=== PATIENT | male | born 1955 | race Caucasian/White ===

== ENCOUNTER 2020-04-28 15:29 | Emergency (ER) | payer BC ==
--- OUTSIDE RECORDS SUMMARY | 2020-04-28 16:00 | XMS REPORT | Summary of Care ---
:1955 Author Organization [facility] Address [address] [place] [address] Care Team Providers Name Role Phone Azael Brito Primary Care Provider [phone] Reason for Visit Reason Comments Re-evaluation Encounter Details Date Type Department Care Team Description 02/02/2020 Office Visit [facility] Rom Lopez (Primary Dx); Dermatology, Viky Garduno MD DSAP (disseminated superficial actinic p orokeratosis); [address] [facility]; [address] [place] [address] [id number] Actinic keratosis; South, Entrance [place], [place] History of [place] [phone] Allergies Active Allergy Reactions Severity Noted Date Comments Ciprofloxacin Nausea and/or Vomiting High 07/31/2016 Metronidazole Nausea and/or Vomiting Medium 07/31/2016 Levofloxacin Nausea and/or Vomiting High 07/31/2016 documented as of this encounter (statuses as of 02/02/2020) Medications Medication Sig Dispensed Refills Start End Date Status Date NIACIN, INOSITOL Take by mouth. 0 Active NIACINATE, ORAL lisinopril-hydroc 0 Ac tive hlorothiazide 4 (PRINZIDE,ZESTORE TIC) 20-12.5 mg per tablet NAPROXEN SODIUM Take by mouth as 0 Active (ALEVE ORAL) needed. TESTOSTERONE 200 mg by 0 Active CYPIONATE IM Intramuscular route every 2 (two) weeks. simvastatin 40 mg Take 40 mg by 0 Active tabletIndications mouth at bedtime. 7 : Scrotal varices traMADOL 50 mg Take 50 mg by 0 A ctive tabletIndications mouth as needed. 6 : Scrotal varices acyclovir 200 mg Take 200 mg by 0 Active capsuleIndication mouth as needed. 6 s: Scrotal varices fluorouracil Apply to area(s) 40 g 1 Active (EFUDEX) 5 % daily. 8 creamIndications: Actinic keratosis doxycycline 100 Starting 2 days 28 capsule 0 Active mg prior to surgery, 9 capsuleIndication take 1 tablet s: Squamous cell twice a day. 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 0 creamIndications: DSAP (disseminated superficial actinic porokeratosis) fluorouracil 5 % Apply to area(s) 40 g 2 Active creamIndications: daily. 0 DSAP (disseminated superficial actinic porokeratosis) calcipotriene Apply to area(s) 120 g 1 02/02/20 Discontinued 0.005 % daily. 9 20 (Reorder) creamIndications: DSAP (disseminated superficial actinic porokeratosis) fluorouracil 5 % Apply to area(s) 40 g 2 02/01 Discontinued creamIndications: daily. 9 20 (R eorder) DSAP (disseminated superficial actinic porokeratosis) documented as of this encounter (statuses as of 02/02/2020) Active Problems Problem Noted Date Personal history of other malignant neoplasm of skin 0 01/20/2013 Actinic keratosis 01/20/2013 documented as of this encounter (statuses as of 02/02/2020) Social History Tobacco Use Types Packs/Day Years Used Date Never Smoker Smokeless Tobacco: Never Used Alcohol Use Drinks/Week oz/Week Comments Yes 0 Standard drinks or equivalent 0.0 DAILY Sex Assigned at Date Recorded Not on file documented as of this encounter Last Filed Vital Signs Not on filedocumented in this encounter Progress Notes Tan Guardado MD - 02/02/2020 2:20 PM CDT Robbie Mosher is a 64 year old male Cc: growth HPI Robbie Mosher is a 64 year old male who presents for growth on R ear. The lesion has been present for several months, persistent. Denies any associated pain, itching, or bleeding. No previous treatments tried. Histories Past Medical History: Diagnosis Date Skin cancer (+) hx of skin cancer SH: Lives in [place] [id number] Allergies Allergies Allergen Reactions Ciprofloxacin Nausea and/or Vomiting Levaquin [Levofloxacin] Nausea and/or Vomiting Flagyl [Metronidazole] Nausea and/or Vomiting Medications Current Outpatient Medications on File Prior to Visit Medication Sig Dispense Refill calcipotriene 0.005 % cream Apply to area(s) daily. 120 g 1 fluorouracil 5 % cream Apply to area(s) daily. 40 g 2 doxycycline 100 mg capsule Starting 2 days prior to surgery, take 1 tablet twice a day. 28 capsule 0 mupirocin 2 % ointment Apply directly to surgical wound with dressing changes. 22 g 0 fluorouracil (EFUDEX) 5 % cream Apply to area(s) daily. 40 g 1 acyclovir 200 mg capsule Take 200 mg by mouth as needed. 0 simvastatin 40 mg tablet Take 40 mg by mouth at bedtime. 0 traMADOL 50 mg tablet Take 50 mg by mouth as needed. 0 TESTOSTERONE CYPIONATE IM 200 mg by Intramuscular route every 2 (two) weeks. NAPROXEN SODIUM (ALEVE ORAL) Take by mouth as needed. lisinopril-hydrochlorothiazide (PRINZIDE,ZESTORETIC) 20-12.5 mg per tablet NIACIN, INOSITOL NIACINATE, ORAL Take by mouth. No current facility-administered medications on file prior to visit. Review of Systems Skin: Itching (-), Pain (-) Heme: Bleeding (-) Physical Exam There were no vitals taken for this visit. Positive (+), Negative (-) General : Awake, no acute distress, well developed, well nourished Psychiatric: Normal affect, mood, speech and thought content Neurology: Alert, oriented to person, place, and situation Pulmonary: Breathing unlabored FACE: Positive EYES: Negative NOSE: Negative EARS: Positive SCALP: Negative NECK: Negative CHEST: Negative ABDOMEN: Positive BACK: Positive RIGHT ARM: See image LEFT ARM: Positive RIGHT LEG: Positive LEFT LEG: Positive GENITALIA: Positive (-)=Negative,(+)=Positive Actinic Keratosis (A): erythematous scaling papules Rehman Hemaniogioma (CH): smooth red and purple papules Dermatitis Erythema (DE): mild to moderate erythema and scaling Dermatitis Lichenified (DL): lichenification and thickening Dermatitis Weeping (DW): weeping and excoriation Inflamed Seborrheic Keratosis (ISK): inflamed warty brown papules and plaques Millium (ML): Small white cystic papule Molluscum Contagiosum (MC): umbilicated papule Nevus Macular (NM): well circumscribed evenly pigmented macule Nevus Papular (FUELS SALES REPRESENTATIVE): well circumscribed evenly pigmented papule Psoriasis Circumscribed (PC): well circumscribed erythema and scaling Psoriasis Diffuse (PD): diffuse patches of erythema and scaling Seborrheic Keratosis (SK): verrucous brown papules and plaques Scar (SR): cicatricial change Verruca Vulgarus (W): warty hyperkeratotic papule Assessment/Plan 1) Lentigines - upper back - Etiology and treatments discussed - Benign appearing - Recommended sun protection 2) Disseminated superficial actinic porokeratosis - extremities, trunk - Patient counseled on condition - Prominent lesions frozen today, will reevaluate lesions at f/u - CRYOTHERAPY: see #4 - areas marked "A" on PE LN2's 3) Acrochordon: shaft of penis - Etiology and treatment options discussed - LN2 offered - Reassurance provided 4) Actinic keratosis/es, face, extremities - Discussed etiology (actinic damage), prognosis/premalignant potential, and treatment options. - CRYOTHERAPY: Verbal consent obtained. 15+ lesion(s) treated with liquid nitrogen. Patient informedof potential for erythema, blister formation, hyper- or hypopigmentation, and scar at site of treatment. Wound care discussed - Counseled patient about sunscreen/sun avoidance/sun protection. 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 Lopez, who agrees with the plan of care. Tan Guardado MD 2:24 PM PGY-2 [facility] Dermatology documented in this encounter Plan of Treatment Date Type Specialty Care Team Description 08/05/2020 Office Visit Dermatology Lenin Lopez MD [address] [place], [place] [address] Health Maintenance Due Date Last Done Comments HEPATITIS C (HCV) SCREEN 1955 PNEUMOCOCCAL 0-64 YEARS COMBINED SERIES (1 of 3 - 1962 PCV13) DTaP,Tdap,and Td Vaccines (1 - Tdap) 09/25/1975 COLON CANCER SCREENING ANNUAL FIT/FOBT 2006 COLON CANCER SCREENING FIT DNA EVERY 3 YEARS 2006 COLON CANCER SCREENING SIGMOIDOSCOPY EVERY 5 YEARS 2006 COLONOSCOPY 2006 Colorectal Cancer Screening 2006 Zoster Recombinant Vaccine (SHINGRIX) (1 of 2) 2006 INFLUENZA VACCINE (#1) 2020 Depression Screening 07/29/2020 07/29/2019 documented as of this encounter Results Not on filedocumented in this encounter Visit Diagnoses Diagnosis Lentigines - Primary Other dyschromia DSAP (disseminated superficial actinic p orokeratosis) Disseminated superficial actinic poroker atosis (DSAP) Acrochordon Unspecified hypertrophic and atrophic co ndition of skin Actinic keratosis History of nonmelanoma skin cancer Personal history of other malignant neop lasm of skin documented in this encounter Insurance Payer Benefit Plan Subscriber ID Effective Dates Phone Address Type / Group BCBS OF [facility] [id number] 2011-Natalee [phone] [address] PPO/POS [place] - OUT OF t 7 [id number] [place] [address] documented as of this encounter Advance Directives Type Date 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
--- OUTSIDE RECORDS SUMMARY | 2020-04-28 16:00 | XMS REPORT | Continuity of Care Document ---
:1955 Author Organization [facility] t Address [address] [place] [address] Care Team Providers Name Role Phone Laureen Lopez MD Attending Clinician Problems This patient has no known problems. Allergies, Adverse Reactions, Alerts This patient has no known allergies or adverse reactions. Medications This patient has no known medications. Procedures This patient has no known procedures. Encounters Start End Encounter Admission Attending Care Care Encounter Source Date/Time Date/Time Type Type Clinicians Facility Department ID 2020-02-02 2020-02-02 Office SRI Lopez [id number] 14:17:17 14:40:32 Visit Rom Garduno [facility] [id number] [facility] [id number] [place] [id number] [facility] Results This patient has no known results.
--- OUTSIDE RECORDS SUMMARY | 2020-04-28 16:01 | XMS REPORT | Summary of Care ---
:1955 Author Organization [facility] Address [address] [place] [address] Care Team Providers Name Role Phone Azael Brito Primary Care Provider [phone] Reason for Visit Reason Comments Re-evaluation Encounter Details Date Type Department Care Team Description 02/02/2020 Office Visit [facility] Rom Lopez (Primary Dx); Dermatology, Viky Garduno MD DSAP (disseminated superficial actinic p orokeratosis); [address] [facility]; [address] [place] [address] [id number] Actinic keratosis; South, Entrance [place], [place] History [place] [phone] Allergies Active Allergy Reactions Severity Noted [...] a day. 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 of left scientologist calcipotriene Apply to area(s) 120 g 1 [...] hx of skin cancer SH: Lives in [place] [address] Allergies Allergies Allergen Reactions Ciprofloxacin Nausea and/or [...] well circumscribed evenly pigmented macule Nevus Papular (SHOE FOLDER): well circumscribed evenly pigmented papule Psoriasis Circumscribed [...] care. 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
[2020-04-28 16:21] LABS: Absolute Lymphocytes (CBC) 1.6 K/uL (0.7-4.9); Basophils % 0.2 % (0-1.3); MPV 8.1 fL (7.6-11.3); RBC Red Blood Cell Count 5.24 M/uL (4.33-5.43)
[2020-04-28 16:27] LABS: Bilirubin Direct 0.1 mg/dL (0-0.2); Bilirubin Total 0.4 mg/dL (0.2-1.0); Potassium 3.7 mmol/L (3.5-5.1); Protein, Total 7.5 g/dL (6.4-8.2)
[2020-04-28 16:47] LABS: Urine Blood TRACE (NEG); Urine Glucose NEGATIVE (NEG); Urine Protein NEGATIVE (NEG)
--- NOTE | 2020-04-28 16:56 | RAD REPORT ---
EXAM DESCRIPTION: CT - Stone Protocol - 04/28/2020 4:11 pm CLINICAL HISTORY: Abdominal pain. Right flank pain COMPARISON: 2015 TECHNIQUE: Computed axial tomography of the abdomen pelvis was obtained without oral or IV contrast. Lack of IV and oral contrast limits evaluation of solid organs, bowel, and vessels. Coronal reformat akshat images were obtained and reviewed. All CT scans are performed using dose optimization technique as appropriate and may include automated exposure control or mA/KV adjustment according to patient size. FINDINGS: A renal calculus is not seen. An ureteral calculus is not noted. A bladder calculus is not present. The liver, spleen, pancreas and adrenals appear grossly normal Diverticula stem from the colon without evidence of diverticulitis. The appendix appears normal Small hiatal hernia. Tiny umbilical hernia. Inguinal hernia repair IMPRESSION: Negative for a genitourinary calculus
--- NOTE | 2020-04-28 17:09 | ER ---
Nurse's Notes [facility] Name: Robbie Mosher Age: 64 yrs Sex: Male : 1955 Arrival Date: 04/28/2020 Time: 15:31 Bed 19 Private MD: Diagnosis: Flank Pain Presentation: 04/28 15:46 Chief complaint: Patient states: Right flank pain since July, worse for 1 week. ll1 Denies N/V/D. No fevers, no dysuria reported. Coronavirus screen: Client denies travel out of the [place] in the last 14 days. At this time, the client does not indicate any symptoms associated with coronavirus-19. Ebola Screen: Patient denies travel to an Ebola-affected area in the 21 days before illness onset. Initial Sepsis Screen: Does the patient meet any 2 criteria? HR > 90 bpm. No. Patient's initial sepsis screen is negative. Does the patient have a suspected source of infection? Yes: Acute abdominal pain. Risk Assessment: Do you want to hurt yourself or someone else? Patient reports no desire to harm self or others. Onset of symptoms was July 02, 2019. 15:46 Method Of Arrival: Ambulatory ll1 15:46 Acuity: RENETTA 3 ll1 Historical: - Allergies: 15:48 Cipro; ll1 15:48 Levaquin; ll1 15:48 METRONIDAZOLE; ll1 16:14 Aspirin; hb - Home Meds: 16:14 Aleve Oral PRN [Active]; lisinopril Oral [Active]; simvastatin 40 mg Oral tab 1 tab hb once daily [Active]; Tramadol Oral PRN [Active]; - PMHx: 15:48 High Cholesterol; Hypertension; ll1 - PSHx: 15:48 Hernia repair; ll1 - Immunization history:: Flu vaccine is not up to date. - Social history:: Smoking status: Patient denies any tobacco usage or history of. Screenin:40 Abuse screen: Denies threats or abuse. Nutritional screening: No deficits noted. tw2 Tuberculosis screening: No symptoms or risk factors identified. Fall Risk None identified. Assessment: 15:39 Reassessment: pt states "i need to urinate at this time", specimen cup given to pt at tw2 this time. 15:49 General: Appears in no apparent distress. Behavior is calm, cooperative. Pain: Pain hb currently is 2 out of 10 on a pain scale. Neuro: Level of Consciousness is awake, alert, obeys commands, Oriented to person, place, time, situation. Cardiovascular: Patient's skin is warm and dry. Respiratory: Respiratory effort is even, unlabored, Respiratory pattern is regular, symmetrical. GI: Reports right flank pain. : Reports right flank pain. EENT: No signs and/or symptoms were reported regarding the EENT system. Derm: Skin is pink, warm \\T\\ dry. Musculoskeletal: No signs and/or symptoms reported regarding the musculoskeletal system. 17:08 Reassessment: Patient appears in no apparent distress at this time. Patient and/or hb family updated on plan of care and expected duration. Pain level reassessed. Patient is alert, oriented x 3, equal unlabored respirations, skin warm/dry/pink. Vital Signs: 15:46 BP 127 / 65; Pulse 98; Resp 18; Temp 98.5; Pulse Ox 97% on R/A; Pain 2/10; ll1 17:00 BP 132 / 68; Pulse 82; Resp 16; Pulse Ox 97% on R/A; hb ED Course: 15:31 Patient arrived in ED. mr 15:37 Katia Badillo, [facility] kb 15:37 Miranda Garay MD is Attending Physician. kb 15:43 Kayleigh Ford, RN is Primary Nurse. hb 15:43 Arm band placed on. hb 15:48 Triage completed. ll1 15:48 Patient placed in an exam room, on a stretcher. ll1 15:49 Patient has correct armband on for positive identification. Bed in low position. Call hb light in reach. Side rails up X 1. 16:04 Inserted saline lock: 20 gauge in right antecubital area, using aseptic technique. tw2 Blood collected. 16:12 CT Stone Protocol In Process Unspecified. EDMS 17:18 Removal of peripheral IV. Catheter intact, dressing applied. jp3 17:29 No provider procedures requiring assistance completed. IV discontinued, intact, hb bleeding controlled, No redness/swelling at site. Administered Medications: No medications were administered Outcome: 17:09 Discharge ordered by . kb 17:27 Patient left the ED. hb 17:29 Discharged to home ambulatory. hb 17:29 Condition: stable 17:29 Discharge instructions given to patient, Instructed on discharge instructions, follow up and referral plans. medication usage, Demonstrated understanding of instructions, follow-up care, medications, Prescriptions given X 1. Signatures: Dispatcher [employer] Katia Whitten, [employer] SALESPERSON-Sayda Chappell mr Kayleigh Ford, LULY RN hb Serina Henderson RN RN tw2 Favio David jp3 René Mason RN RN ll1
--- NOTE | 2020-04-28 17:10 | EDPHYS ---
Physician Documentation [facility] Name: Robbie Mosher Age: 64 yrs Sex: Male : 1955 Arrival Date: 04/28/2020 Time: 15:31 Bed 19 Private MD: ED Physician Miranda Garay HPI: 04/28 17:37 This 64 yrs old Male presents to ER via Ambulatory with complaints of Flank kb Pain. 17:37 The patient presents with abdominal pain right anterior lateral abd. Onset: The kb symptoms/episode began/occurred 9 month(s) ago, and became worse this month, and more painful this week. The symptoms do not radiate. Associated signs and symptoms: none. The symptoms are described as constant. Modifying factors: The symptoms are alleviated by nothing, the symptoms are aggravated by nothing. Severity of pain: At its worst the pain was moderate in the emergency department the pain is unchanged. The patient has not experienced similar symptoms in the past. The patient has not recently seen a physician. Pt reports he started having this pain to right lateral abd in July. PCP couldn't find a source so he let it go, but this month the pain has increased and this week it is even worse. . Historical: - Allergies: 15:48 Cipro; ll1 15:48 Levaquin; ll1 15:48 METRONIDAZOLE; ll1 16:14 Aspirin; hb - Home Meds: 16:14 Aleve Oral PRN [Active]; lisinopril Oral [Active]; simvastatin 40 mg Oral tab 1 tab hb once daily [Active]; Tramadol Oral PRN [Active]; - PMHx: 15:48 High Cholesterol; Hypertension; ll1 - PSHx: 15:48 Hernia repair; ll1 - Immunization history:: Flu vaccine is not up to date. - Social history:: Smoking status: Patient denies any tobacco usage or history of. ROS: 17:34 Constitutional: Negative for fever, chills, and weight loss, Cardiovascular: Negative kb for chest pain, palpitations, and edema, Respiratory: Negative for shortness of breath, cough, wheezing, and pleuritic chest pain, : Negative for injury, bleeding, discharge, and swelling, MS/Extremity: Negative for injury and deformity, Skin: Negative for injury, rash, and discoloration, Neuro: Negative for headache, weakness, numbness, tingling, and seizure. 17:34 Abdomen/GI: Positive for abdominal pain, Negative for nausea, vomiting, and diarrhea, constipation. 17:34 Back: Positive for flank pain. Exam: 17:35 Constitutional: This is a well developed, well nourished patient who is awake, alert, kb and in no acute distress. Head/Face: Normocephalic, atraumatic. Chest/axilla: Normal chest wall appearance and motion. Nontender with no deformity. No lesions are appreciated. Cardiovascular: Regular rate and rhythm with a normal S1 and S2. No gallops, murmurs, or rubs. Normal PMI, no JVD. No pulse deficits. Respiratory: Lungs have equal breath sounds bilaterally, clear to auscultation and percussion. No rales, rhonchi or wheezes noted. No increased work of breathing, no retractions or nasal flaring. Abdomen/GI: Soft, non-tender, with normal bowel sounds. No distension or tympany. No guarding or rebound. No evidence of tenderness throughout. Back: No spinal tenderness. No costovertebral tenderness. Full range of motion. Skin: Warm, dry with normal turgor. Normal color with no rashes, no lesions, and no evidence of cellulitis. MS/ Extremity: Pulses equal, no cyanosis. Neurovascular intact. Full, normal range of motion. Neuro: Awake and alert, GCS 15, oriented to person, place, time, and situation. Cranial nerves II-XII grossly intact. Motor strength 5/5 in all extremities. Sensory grossly intact. Cerebellar exam normal. Normal gait. Vital Signs: 15:46 BP 127 / 65; Pulse 98; Resp 18; Temp 98.5; Pulse Ox 97% on R/A; Pain 2/10; ll1 17:00 BP 132 / 68; Pulse 82; Resp 16; Pulse Ox 97% on R/A; hb MDM: 15:37 Patient medically screened. kb 17:08 Data reviewed: vital signs, nurses notes. Data interpreted: Pulse oximetry: on room air kb is 97 %. Interpretation: normal. 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 04/28 15:55 Order name: Basic Metabolic Panel; Complete Time: 16:29 kb 04/28 15:55 Order name: CBC with Diff; Complete Time: 16:24 kb 04/28 15:55 Order name: Hepatic Function; Complete Time: 16:29 kb 04/28 15:55 Order name: Lipase; Complete Time: 16:29 kb 04/28 15:55 Order name: CT Stone Protocol; Complete Time: 16:59 kb 04/28 16:25 Order name: Urine Dipstick--Ancillary (enter results); Complete Time: 16:48 bd 04/28 15:41 Order name: Urine Dipstick-Ancillary (obtain specimen); Complete Time: 15:49 kb 04/28 15:55 Order name: IV Saline Lock; Complete Time: 16:04 kb 04/28 15:55 Order name: Labs collected and sent; Complete Time: 16:04 kb Administered Medications: No medications were administered Disposition: 17:59 Co-signature as Attending Physician, Miranda Garay MD. ma2 Disposition: 04/28/20 17:09 Discharged to Home. Impression: Flank Pain. - Condition is Stable. - Discharge Instructions: Flank Pain, [id number]. - Prescriptions for Tramadol 50 mg Oral Tablet - take 1 tablet by ORAL route every 8 hours as needed; 12 tablet. - Medication Reconciliation Form, Thank You Letter, Antibiotic Education, Prescription Opioid Use form. - Follow up: Emergency Department; When: As needed; Reason: Worsening of condition. Follow up: Private Physician; When: 2 - 3 days; Reason: Recheck today's complaints, Continuance of care, Re-evaluation by your physician. Signatures: Dispatcher [employer] Katia Whitten FNP-C FNP-Kayleigh Ruiz RN Miranda Almendarez MD MD ma2 René Mason RN RN ll1 Corrections: (The following items were deleted from the chart) 17:27 17:09 04/28/2020 17:09 Discharged to Home. Impression: Flank Pain. Condition is Stable. hb Forms are Medication Reconciliation Form, Thank You Letter, Antibiotic Education, Prescription Opioid Use. Follow up: Emergency Department; When: As needed; Reason: Worsening of condition. Follow up: Private Physician; When: 2 - 3 days; Reason: Recheck today's complaints, Continuance of care, Re-evaluation by your physician. kb 17:36 17:34 Abdomen/GI: Positive for abdominal pain, nausea, Negative for vomiting, diarrhea, kb constipation, kb 17:36 17:35 Constitutional: This is a well developed, well nourished patient who is awake, kb alert, and in no acute distress. Head/Face: Normocephalic, atraumatic. Chest/axilla: Normal chest wall appearance and motion. Nontender with no deformity. No lesions are appreciated. Cardiovascular: Regular rate and rhythm with a normal S1 and S2. No gallops, murmurs, or rubs. Normal PMI, no JVD. No pulse deficits. Respiratory: Lungs have equal breath sounds bilaterally, clear to auscultation and percussion. No rales, rhonchi or wheezes noted. No increased work of breathing, no retractions or nasal flaring. Back: No spinal tenderness. No costovertebral tenderness. Full range of motion. Skin: Warm, dry with normal turgor. Normal color with no rashes, no lesions, and no evidence of cellulitis. MS/ Extremity: Pulses equal, no cyanosis. Neurovascular intact. Full, normal range of motion. Neuro: Awake and alert, GCS 15, oriented to person, place, time, and situation. Cranial nerves II-XII grossly intact. Motor strength 5/5 in all extremities. Sensory grossly intact. Cerebellar exam normal. Normal gait. kb 17:36 17:35 Abdomen/GI: Inspection: abdomen appears normal, Bowel sounds: normal, in all kb quadrants, Palpation: soft, in all quadrants, moderate abdominal tenderness, in the right lower quadrant, kb 17:36 17:35 Abdomen/GI: Inspection: abdomen appears normal, Bowel sounds: normal, in all kb quadrants, Palpation: soft, in all quadrants, mild abdominal tenderness, in the anterior aspect of right lateral abdomen, kb
[2020-04-28 17:59] VITALS: TEMP 98.5; O2SAT 97
[2020-04-28 18:07] VITALS: BP 132/68
== END 2020-04-28 17:27 | disposition home or self-care (01) ==
LOC: ER 15:29
DX: R10.9 Unspecified abdominal pain (principal); I10 Essential (primary) hypertension; E78.00 Pure hypercholesterolemia, unspecified; Z88.1 Allergy status to other antibiotic agents; Z88.6 Allergy status to analgesic agent; Z88.8 Allergy status to other drugs, medicaments and biological substances
CPT/HCPCS: 36415; 74176; 76377; 80048; 80076; 81003; 83690; 85025; 99284